=== PATIENT | male | born 2000 | race Caucasian/White ===

== ENCOUNTER 2024-11-18 07:02 | Inpatient (IN) | payer SELFPAY ==
[~2024-11-18] VITALS: Ht 180.3 cm; Wt 81.6 kg
[2024-11-18] MEDS: DEXT 5%/0.9% NACL 1,000 ML IV SCH (01:05)
[2024-11-18 10:36] LABS: CALCIUM 9.8 mg/dL (8.7-10.4); CHLORIDE 101 mEq/L (98-107); POTASSIUM 3.6 mEq/L (3.5-5.1); SODIUM 130 mEq/L (136-145)
[2024-11-18 10:40] LABS: CARBON DIOXIDE < 10 mEq/L (21-32)
[2024-11-18 10:41] LABS: CREATININE 0.9 mg/dL (0.6-1.3); GLUCOSE 366 mg/dL (70-105)
[2024-11-18 10:42] LABS: UREA NITROGEN BLOOD 8 mg/dL (9-23)
[2024-11-18 10:44] LABS: BETA HYDROXYBUTYRATE 8.4 mMol/L (0.0-0.3)
[2024-11-18 10:45] LABS: TROPONIN I HIGH SENSITIVITY < 4 ng/L (3.0-53)
[2024-11-18] MEDS ORDERED: POTASSIUM CHLORIDE 40 MEQ in SODIUM CHLORIDE 0.9% 230 ML IV PRN (11:00)
[2024-11-18] MEDS ORDERED: SODIUM CHLORIDE 0.9% 1,000 ML IV SCH (11:00)
[2024-11-18] MEDS ORDERED: SODIUM PHOSPHATE 15 MMOL in SODIUM CHLORIDE 0.9% 245 ML IV PRN ×2 (11:00→12:00)
[2024-11-18] MEDS ORDERED: DEXTROSE 50% WATER 50ML SYRINGE IV PRN ×2 (11:00→12:00)
[2024-11-18] MEDS ORDERED: DEXT 5%/0.9% NACL 1,000 ML IV SCH (11:00)
[2024-11-18] MEDS ORDERED: BLOOD SUGAR DIAGNOSTIC STRIP TEST PRN ×2 (11:00→12:00)
[2024-11-18] MEDS ORDERED: KCL 20MEQ/100ML PREMIX 100 ML IV PRN (11:00)
[2024-11-18] MEDS ORDERED: MAGNESIUM 2 G PREMIX 50 ML IV PRN (11:00)
[2024-11-18] MEDS ORDERED: INSULIN REGULAR (DRIP) 100 UNITS in SODIUM CHLORIDE 0.9% 99 ML IV SCH (11:00)
[2024-11-18 11:02] LABS: BG BASE EXCESS -20.2 mmol/L (-2.0-3.0); BG CARBOXYHEMOGLOBIN 0.3 % (0.5-1.5); BG DEOXYHEMOGLOBIN 1.7 % (0.0-5.0); BG FRACTION INSPIRED OXYGEN 21; BG HCO3 ACT 4.9 mmol/L (21.0-28.0); BG METHEMOGLOBIN 0.2 % (0.5-1.5); BG OXYGEN SATURATION 98.3 % (94.0-98.0); BG OXYHEMOGLOBIN 97.8 % (94.0-98.0); BG PCO2 13.1 mmHg (35.0-48.0); BG PH 7.193 (7.350-7.450); BG SAMPLE SITE RIGHT RADIAL; BG VENT MODE ROOM AIR
[2024-11-18] MEDS: INSULIN REGULAR 100U/100ML PMX 100 ML IV SCH (11:50)
[2024-11-18] MEDS: SODIUM CHLORIDE 0.9% 1,000 ML IV ONE ×2 (11:50→12:28)
[2024-11-18] MEDS: BLOOD SUGAR DIAGNOSTIC STRIP TEST SCH ×2 (11:50→12:00)
[2024-11-18] MEDS ORDERED: GUAIFENESIN 200MG/10ML SUGAR FREE UDC PO PRN (12:00)
[2024-11-18] MEDS ORDERED: CLONIDINE 0.1MG TABLET PO PRN (12:00)
[2024-11-18] MEDS ORDERED: ACETAMINOPHEN 325MG TABLET PO PRN (12:00)
[2024-11-18] MEDS ORDERED: DOCUSATE SODIUM 100MG CAPSULE PO PRN (12:00)
[2024-11-18] MEDS ORDERED: IPRATROPIUM/ALBUTEROL 0.5-3(2.5)MG/3ML NEB HHN PRN (12:00)
[2024-11-18 12:18] LABS: CLARITY URINE CLEAR (CLEAR); COLOR URINE YELLOW (YELLOW); GLUCOSE URINE 3+ (NEGATIVE); KETONES URINE 4+ (NEGATIVE); LEUKOCYTE ESTERASE URINE NEGATIVE (NEGATIVE); NITRITE URINE NEGATIVE (NEGATIVE); OCCULT BLOOD URINE 1+ (NEGATIVE); PROTEIN URINE 3+ (NEGATIVE); SPECIFIC GRAVITY URINE 1.035 (1.005-1.030); UROBILINOGEN URINE 0.2 E.U./dL (0.2-1.0)
[2024-11-18 13:02] LABS: CHLORIDE 102 mEq/L (98-107); POTASSIUM 4.1 mEq/L (3.5-5.1); SODIUM 132 mEq/L (136-145)
[2024-11-18 13:03] LABS: CALCIUM 9.1 mg/dL (8.7-10.4)
[2024-11-18 13:08] LABS: GLUCOSE 369 mg/dL (70-105); UREA NITROGEN BLOOD 8 mg/dL (9-23)
[2024-11-18 13:11] LABS: BACTERIA URINE FEW; RBC URINE NONE SEEN /hpf (0-2); SQUAMOUS EPITHELIAL CELL URINE NONE SEEN /lpf (RARE/1+); WBC URINE 0-2 /hpf (0-2); YEAST URINE FEW
[2024-11-18 13:11] LABS: PHOSPHORUS 2.6 mg/dL (2.5-4.9)
[2024-11-18] MEDS: SODIUM CHLORIDE 0.9% 1,000 ML IV SCH (13:11)
[2024-11-18 13:14] LABS: HYALINE CASTS URINE 0-5 /lpf
[2024-11-18 13:21] LABS: CARBON DIOXIDE < 10 mEq/L (21-32)
[2024-11-18] MEDS: MAGNESIUM 2 G PREMIX 50 ML IV PRN (13:37)
[2024-11-18 13:46] LABS: INR 0.9; PROTHROMBIN TIME 10.1 sec (9.6-11.0)
[2024-11-18 13:51] LABS: LACTATE DEHYDROGENASE 211 IU/L (120-246)
[2024-11-18 15:04] LABS: CREATINE KINASE 79 IU/L (46-171)
[2024-11-18] MEDS: KETOROLAC 15MG/ML VIAL IV NR (15:09)
[2024-11-18 15:39] LABS: BASOPHILS % 0.3 % (0.0-2.0); EOSINOPHILS % 0.2 % (0.0-5.0); HEMATOCRIT. 51.4 % (42.0-52.0); HEMOGLOBIN. 18.1 g/dL (14.0-18.0); LYMPHOCYTES % 7.8 % (20.0-50.0); MEAN CORPUSCULAR HEMOGLOBIN 28.2 pg (28.0-32.0); MEAN CORPUSCULAR HGB CONC 35.2 g/dL (31.0-37.0); MEAN CORPUSCULAR VOLUME 80.1 fL (80.0-94.0); MEAN PLATELET VOLUME 9.8 fl (7.4-10.4); MONOCYTES % 8.9 % (2.0-8.0); NEUTROPHILS % 82.8 % (40.0-76.0); PLATELET 204 x1000/uL (130-400); RED BLOOD CELL COUNT 6.41 mill/uL (4.7-6.1); RED CELL DISTRIBUTION WIDTH 17.6 % (11.6-14.6); WHITE BLOOD COUNT 20.9 x1000/uL (4.5-11.0)
[2024-11-18 17:15] LABS: CHLORIDE 109 mEq/L (98-107); SODIUM 134 mEq/L (136-145)
[2024-11-18 17:16] LABS: CALCIUM 8.2 mg/dL (8.7-10.4)
[2024-11-18 17:21] LABS: CREATININE 0.8 mg/dL (0.6-1.3); GLUCOSE 260 mg/dL (70-105); UREA NITROGEN BLOOD 7 mg/dL (9-23)
[2024-11-18 17:23] LABS: PHOSPHORUS 1.2 mg/dL (2.5-4.9)
[2024-11-18 17:27] LABS: CARBON DIOXIDE < 10 mEq/L (21-32)
[2024-11-18] MEDS: ACETAMINOPHEN 325MG TABLET PO PRN (20:17)
[2024-11-18 20:44] LABS: CHLORIDE 109 mEq/L (98-107); POTASSIUM 3.8 mEq/L (3.5-5.1); SODIUM 136 mEq/L (136-145)
[2024-11-18 20:45] LABS: CALCIUM 8.4 mg/dL (8.7-10.4); CARBON DIOXIDE 11 mEq/L (21-32)
[2024-11-18] MEDS: ONDANSETRON HCL 4MG/2ML INJ IV PRN (20:49)
[2024-11-18 20:50] LABS: GLUCOSE 275 mg/dL (70-105); UREA NITROGEN BLOOD 9 mg/dL (9-23)
[2024-11-18 21:02] LABS: CHLORIDE 109 mEq/L (98-107); POTASSIUM 4.1 mEq/L (3.5-5.1); SODIUM 133 mEq/L (136-145)
[2024-11-18] MEDS: POTASSIUM PHOSPHATE 30 MMOL in DEXT 5% WATER 490 ML IV NR (21:07)
[2024-11-18 21:10] LABS: PHOSPHORUS 1.4 mg/dL (2.5-4.9)
[2024-11-18 21:17] LABS: CARBON DIOXIDE < 10 mEq/L (21-32)
[2024-11-18 22:44] LABS: CHLORIDE 108 mEq/L (98-107); POTASSIUM 4.8 mEq/L (3.5-5.1); SODIUM 134 mEq/L (136-145)
[2024-11-18 22:45] LABS: CARBON DIOXIDE 11 mEq/L (21-32)
[2024-11-18 22:46] LABS: CALCIUM 8.4 mg/dL (8.7-10.4)
[2024-11-18 22:50] LABS: GLUCOSE 297 mg/dL (70-105); UREA NITROGEN BLOOD 9 mg/dL (9-23)
[2024-11-18 23:54] VITALS: BP 110/85; PULSE 137; RESP 26; TEMP 36.9
[2024-11-18 23:55] VITALS: PULSE 134; RESP 21; O2SAT 97
[2024-11-19] VITALS (95 sets, daily range): BP systolic 98–154; BP diastolic 62–127; PULSE 104–150; RESP 16–34; TEMP 36.6–37.1; O2SAT 97–100
[2024-11-19] MEDS: INSULIN REGULAR 100U/100ML PMX 100 ML IV PRN (00:18)
[2024-11-19] MEDS: METOCLOPRAMIDE HCL 10MG/2ML VIAL IV NR (01:15)
[2024-11-19 05:50] LABS: BASOPHILS % 0.2 % (0.0-2.0); DIFFERENTIAL COMMENT 0; EOSINOPHILS % 0.1 % (0.0-5.0); HEMATOCRIT. 47.7 % (42.0-52.0); HEMOGLOBIN. 15.8 g/dL (14.0-18.0); LYMPHOCYTES % 7.9 % (20.0-50.0); MEAN CORPUSCULAR HEMOGLOBIN 25.9 pg (28.0-32.0); MEAN CORPUSCULAR HGB CONC 33.2 g/dL (31.0-37.0); MEAN PLATELET VOLUME 9.5 fl (7.4-10.4); MONOCYTES % 3.6 % (2.0-8.0); NEUTROPHILS % 88.2 % (40.0-76.0); PLATELET 171 x1000/uL (130-400); RED BLOOD CELL COUNT 6.12 mill/uL (4.7-6.1); RED CELL DISTRIBUTION WIDTH 16.4 % (11.6-14.6)
[2024-11-19 06:31] LABS: CALCIUM 8.2 mg/dL (8.7-10.4); CARBON DIOXIDE 13 mEq/L (21-32); CHLORIDE 113 mEq/L (98-107); POTASSIUM 3.1 mEq/L (3.5-5.1); SODIUM 137 mEq/L (136-145)
[2024-11-19 06:35] LABS: CREATININE 0.8 mg/dL (0.6-1.3); GLUCOSE 196 mg/dL (70-105); TRIGLYCERIDE 914 mg/dL (0-150); UREA NITROGEN BLOOD 11 mg/dL (9-23)
[2024-11-19 06:36] LABS: LDL CHOLESTEROL 64 mg/dL (5-100)
[2024-11-19 06:37] LABS: ALBUMIN 3.3 g/dL (3.2-4.8); CHOLESTEROL 356 mg/dL (<200); HDL CHOLESTEROL < 20 mg/dL (>55)
[2024-11-19 06:39] LABS: T4 FREE 0.95 ng/dL (0.89-1.76)
[2024-11-19 06:40] LABS: THYROID STIMULATING HORMONE 1.76 uIU/mL (0.55-4.78)
[2024-11-19] MEDS: KCL 20MEQ/100ML PREMIX 100 ML IV PRN (07:50)
[2024-11-19 08:31] LABS: PHOSPHORUS 1.1 mg/dL (2.5-4.9)
[2024-11-19] MEDS: ERYTHROMYCIN EC 250MG TABLET PO SCH (08:41)
[2024-11-19] MEDS: POTASSIUM CHLORIDE 40 MEQ in SODIUM CHLORIDE 0.9% 230 ML IV PRN (10:06)
[2024-11-19] MEDS ORDERED: POTASSIUM PHOSPHATE 30 MMOL in SODIUM CHLORIDE 0.9% 490 ML IV ONE (10:30)
[2024-11-19] MEDS: DEXT 5% IV SCH (13:38)
[2024-11-19] MEDS: POTASSIUM PHOSPHATE IV SCH (13:38)
[2024-11-19] MEDS: WATER IV SCH (13:38)
[2024-11-19] MEDS: INSULIN REGULAR (HUMULIN R) 1000UNITS/10ML VIAL SUBCUT NR (15:28)
[2024-11-19] MEDS ORDERED: DEXTROSE 50% WATER 50ML SYRINGE IV PRN (15:45)
[2024-11-19] MEDS: BLOOD SUGAR DIAGNOSTIC STRIP TEST SCH (16:30)
[2024-11-19] MEDS ORDERED: INSU100I28 SQ (16:55)
[2024-11-19] MEDS ORDERED: METF500T60 MT (16:56)
[2024-11-19] MEDS ORDERED: KETOROLAC 30MG/ML VIAL IV PRN (17:00)
[2024-11-19 18:32] LABS: CHLORIDE 116 mEq/L (98-107); SODIUM 143 mEq/L (136-145)
[2024-11-19 18:33] LABS: CALCIUM 8.2 mg/dL (8.7-10.4); CARBON DIOXIDE 16 mEq/L (21-32)
[2024-11-19 18:38] LABS: CREATININE 0.6 mg/dL (0.6-1.3); GLUCOSE 142 mg/dL (70-105); UREA NITROGEN BLOOD 7 mg/dL (9-23)
[2024-11-19 18:39] LABS: AMYLASE 440 IU/L (30-118); BILIRUBIN TOTAL 0.6 mg/dL (0.1-1.0)
[2024-11-19 18:40] LABS: ALANINE AMINOTRANSFERASE < 7 IU/L (10-49); ASPARTATE AMINOTRANSFERASE 15 IU/L (<34); PROTEIN TOTAL 5.4 g/dL (6.0-8.3)
[2024-11-19 18:51] LABS: BILIRUBIN DIRECT < 0.1 mg/dL (<=3.0); PHOSPHORUS 0.9 mg/dL (2.5-4.9)
[2024-11-19] MEDS: KCL 20MEQ/100ML PREMIX 100 ML IV SCH (19:26)
[2024-11-19] MEDS: SODIUM CHLORIDE 0.45% 1,000 ML IV SCH (19:27)
[2024-11-19] MEDS: INSULIN LISPRO 100 UNITS/ML SUBCUT SCH (19:28)
[2024-11-19] MEDS: POTASSIUM PHOSPHATE 30 MMOL in SODIUM CHLORIDE 0.9% 490 ML IV NR (21:50)
[2024-11-20] VITALS (84 sets, daily range): BP systolic 103–156; BP diastolic 56–96; PULSE 99–134; RESP 15–31; TEMP 36.8–37.2; O2SAT 95–100
[2024-11-20 03:27] LABS: CHLORIDE 112 mEq/L (98-107); POTASSIUM 3.7 mEq/L (3.5-5.1); SODIUM 140 mEq/L (136-145)
[2024-11-20 03:28] LABS: CARBON DIOXIDE 18 mEq/L (21-32)
[2024-11-20 03:32] LABS: HEMATOCRIT 37.4 % (42.0-52.0); HEMOGLOBIN 12.4 g/dL (14.0-18.0); MEAN CORPUSCULAR HEMOGLOBIN 25.7 pg (28.0-32.0); MEAN CORPUSCULAR HGB CONC 33.1 g/dL (31.0-37.0); MEAN CORPUSCULAR VOLUME 77.8 fL (80.0-94.0); PLATELET 118 x1000/uL (130-400); RED BLOOD CELL COUNT 4.81 mill/uL (4.7-6.1); RED CELL DISTRIBUTION WIDTH 16.9 % (11.6-14.6); WHITE BLOOD COUNT 8.4 x1000/uL (4.5-11.0)
[2024-11-20 03:33] LABS: CREATININE 0.5 mg/dL (0.6-1.3); GLUCOSE 174 mg/dL (70-105); UREA NITROGEN BLOOD 7 mg/dL (9-23)
[2024-11-20 05:57] LABS: CHLORIDE 110 mEq/L (98-107); POTASSIUM 3.6 mEq/L (3.5-5.1); SODIUM 140 mEq/L (136-145)
[2024-11-20 05:59] LABS: CARBON DIOXIDE 19 mEq/L (21-32)
[2024-11-20 06:00] LABS: CALCIUM 8.5 mg/dL (8.7-10.4)
[2024-11-20 06:05] LABS: CREATININE 0.5 mg/dL (0.6-1.3); GLUCOSE 156 mg/dL (70-105); UREA NITROGEN BLOOD 7 mg/dL (9-23)
[2024-11-20 06:06] LABS: ALANINE AMINOTRANSFERASE 9 IU/L (10-49)
[2024-11-20 06:07] LABS: ASPARTATE AMINOTRANSFERASE 14 IU/L (<34); BILIRUBIN TOTAL 0.8 mg/dL (0.1-1.0); PHOSPHORUS 1.7 mg/dL (2.5-4.9); PROTEIN TOTAL 5.1 g/dL (6.0-8.3)
[2024-11-20] MEDS: EZETIMIBE 10MG TABLET PO SCH (09:06)
[2024-11-20] MEDS: MAGNESIUM 2 G PREMIX 50 ML IV NR (09:07)
[2024-11-20] MEDS: SODIUM PHOSPHATE 30 MMOL in DEXT 5% WATER 490 ML IV NR (10:56)
[2024-11-20] MEDS: GEMFIBROZIL 600MG TABLET PO SCH (18:36)
[2024-11-20] MEDS: INSULIN GLARGINE 100 UNITS/ML SUBCUT SCH (22:02)
[2024-11-21] VITALS: BP 136/84; PULSE 104; RESP 19; TEMP 36.7; O2SAT 98
[2024-11-21 04:00] VITALS: BP 128/80; PULSE 107; RESP 18; TEMP 36.4; O2SAT 100
[2024-11-21 08:00] VITALS: BP 118/65; PULSE 111; RESP 18; TEMP 36.3; O2SAT 98
[2024-11-21 08:11] LABS: CARBON DIOXIDE 12 mEq/L (21-32); CHLORIDE 105 mEq/L (98-107); POTASSIUM 3.1 mEq/L (3.5-5.1); SODIUM 139 mEq/L (136-145)
[2024-11-21 08:16] LABS: CREATININE 0.6 mg/dL (0.6-1.3)
[2024-11-21 08:17] LABS: GLUCOSE 124 mg/dL (70-105); UREA NITROGEN BLOOD 7 mg/dL (9-23)
[2024-11-21 08:19] LABS: PHOSPHORUS 2.9 mg/dL (2.5-4.9)
[2024-11-21 08:45] LABS: HEMATOCRIT 36.6 % (42.0-52.0); MEAN CORPUSCULAR HEMOGLOBIN 25.4 pg (28.0-32.0); MEAN CORPUSCULAR HGB CONC 32.6 g/dL (31.0-37.0); MEAN CORPUSCULAR VOLUME 77.8 fL (80.0-94.0); PLATELET 144 x1000/uL (130-400); RED BLOOD CELL COUNT 4.71 mill/uL (4.7-6.1); WHITE BLOOD COUNT 10.3 x1000/uL (4.5-11.0)
[2024-11-21] MEDS: POTASSIUM CHLORIDE 20MEQ TABLET SR PO NR (11:01)
[2024-11-21 12:00] VITALS: BP 121/80; PULSE 65; RESP 18; TEMP 36.4; O2SAT 98
[2024-11-21 16:00] VITALS: BP 114/76; PULSE 70; RESP 18; TEMP 36.7; O2SAT 98
[2024-11-21] MEDS ORDERED: GEMF600T PO (17:50)
[2024-11-21 18:15] VITALS: BP 124/80; PULSE 101; TEMP 97.4; O2SAT 100
[2024-11-21 19:19] LABS: POTASSIUM 3.7 mEq/L (3.5-5.1)
== END 2024-11-21 19:15 | disposition home or self-care (01) | DRG 420 ==
LOC: EDBD 07:02 → ER 07:02 → MICUNO 11:04 → EDBEDREQTM 11:08 → EDBEDREQSVC 11:08 → EDBEDREQ 11:08 → 6WST 11-20 23:58
PROVIDERS: ADMIT Hospitalist; ATTEND Hospitalist
DX: E11.10 Type 2 diabetes mellitus with ketoacidosis without coma (principal); K85.90 Acute pancreatitis without necrosis or infection, unspecified; E87.4 Mixed disorder of acid-base balance; E83.39 Other disorders of phosphorus metabolism; D72.821 Monocytosis (symptomatic); E87.1 Hypo-osmolality and hyponatremia; E78.1 Pure hyperglyceridemia; E83.42 Hypomagnesemia; E87.6 Hypokalemia; K86.1 Other chronic pancreatitis; Z79.4 Long term (current) use of insulin; Z79.84 Long term (current) use of oral hypoglycemic drugs
CPT/HCPCS: 36415; 36600; 71045; 74176; 80048; 80051; 80053; 80061; 80076; 81003; 82010; 82040; 82150; 82375; 82550; 82805; 82962; 83036; 83605; 83615; 83735; 83930; 84100; 84132; 84145; 84439; 84443; 84484; 85025; 85027; 85651; 93005; 99291; A4606; A4663; J1815; J1885; J2405; J2765; J3475; J3480; J3490; J7030; J7040; J7042; J7050; J7060

== ENCOUNTER 2024-11-24 06:19 | Inpatient (IN) | payer SELFPAY ==
[~2024-11-24] VITALS: Ht 180.3 cm; Wt 79.8 kg
[~2024-11-24 06:19] MED LIST: GEMF600T PO; INSU100I28 SQ; METF500T60 MT
[2024-11-24] MEDS: SODIUM CHLORIDE 0.9% 1,000 ML IV ONE (06:32)
[2024-11-24] MEDS: VANCOMYCIN 1G PREMIX 200 ML IV ONE (07:09)
[2024-11-24] MEDS: PIPERACILLIN/TAZO 3.375G/50ML 50 ML IV ONE (07:12)
[2024-11-24 07:27] LABS: CHLORIDE 108 mEq/L (98-107); SODIUM 137 mEq/L (136-145)
[2024-11-24 07:28] LABS: CALCIUM 10.5 mg/dL (8.7-10.4)
[2024-11-24 07:33] LABS: CREATININE 1.3 mg/dL (0.6-1.3); UREA NITROGEN BLOOD 26 mg/dL (9-23)
[2024-11-24 07:34] LABS: LACTIC ACID 2.6 mmol/L (0.4-2.0); TROPONIN I HIGH SENSITIVITY 4 ng/L (3.0-53)
[2024-11-24 07:35] LABS: ALANINE AMINOTRANSFERASE < 7 IU/L (10-49); ALBUMIN 4.3 g/dL (3.2-4.8); BILIRUBIN TOTAL 0.3 mg/dL (0.1-1.0); CLARITY URINE CLEAR (CLEAR); COLOR URINE YELLOW (YELLOW); GLUCOSE URINE 3+ (NEGATIVE); KETONES URINE 4+ (NEGATIVE); LEUKOCYTE ESTERASE URINE NEGATIVE (NEGATIVE); NITRITE URINE NEGATIVE (NEGATIVE); OCCULT BLOOD URINE 2+ (NEGATIVE); PROTEIN URINE 2+ (NEGATIVE); SPECIFIC GRAVITY URINE 1.022 (1.005-1.030); UROBILINOGEN URINE 0.2 E.U./dL (0.2-1.0)
[2024-11-24 07:36] LABS: PROTEIN TOTAL 8.2 g/dL (6.0-8.3)
[2024-11-24 07:37] LABS: ASPARTATE AMINOTRANSFERASE < 8 IU/L (<34); BILIRUBIN DIRECT < 0.1 mg/dL (<=3.0)
[2024-11-24 07:39] LABS: CARBON DIOXIDE < 10 mEq/L (21-32); GLUCOSE 475 mg/dL (70-105); POTASSIUM 1.6 mEq/L (3.5-5.1)
[2024-11-24 07:46] LABS: PROTHROMBIN TIME 11.1 sec (9.6-11.0)
[2024-11-24 07:54] LABS: BETA HYDROXYBUTYRATE 6.3 mMol/L (0.0-0.3)
[2024-11-24] MEDS ORDERED: SODIUM PHOSPHATE 15 MMOL in SODIUM CHLORIDE 0.9% 245 ML IV PRN ×2 (08:00→11:30)
[2024-11-24] MEDS ORDERED: MAGNESIUM 2 G PREMIX 50 ML IV PRN ×2 (08:00→11:30)
[2024-11-24] MEDS ORDERED: DEXTROSE 50% WATER 50ML SYRINGE IV PRN ×2 (08:00→09:15)
[2024-11-24] MEDS ORDERED: KCL 20MEQ/100ML PREMIX 100 ML IV PRN ×2 (08:00→11:30)
[2024-11-24] MEDS ORDERED: BLOOD SUGAR DIAGNOSTIC STRIP TEST PRN ×2 (08:00→09:15)
[2024-11-24] MEDS ORDERED: DEXT 5%/0.9% NACL 1,000 ML IV SCH ×2 (08:00→11:30)
[2024-11-24 08:22] LABS: HEMATOCRIT. 43.6 % (42.0-52.0); HEMOGLOBIN. 13.6 g/dL (14.0-18.0); MEAN CORPUSCULAR HEMOGLOBIN 25.6 pg (28.0-32.0); MEAN CORPUSCULAR HGB CONC 31.2 g/dL (31.0-37.0); MEAN CORPUSCULAR VOLUME 82.2 fL (80.0-94.0); MEAN PLATELET VOLUME 8.7 fl (7.4-10.4); PLATELET 352 x1000/uL (130-400); RED CELL DISTRIBUTION WIDTH 18.6 % (11.6-14.6); WHITE BLOOD COUNT 16.9 x1000/uL (4.5-11.0)
[2024-11-24 08:26] LABS: DIFFERENTIAL COMMENT 1
[2024-11-24] MEDS: SODIUM CHLORIDE 0.9% (SEPSIS BOLUS) IV ONE (08:42)
[2024-11-24] MEDS: BLOOD SUGAR DIAGNOSTIC STRIP TEST SCH ×2 (08:43→09:30)
[2024-11-24] MEDS: POTASSIUM CHLORIDE 40 MEQ in SODIUM CHLORIDE 0.9% 230 ML IV PRN (08:55)
[2024-11-24 08:59] LABS: BG BASE EXCESS -26.7 mmol/L (-2.0-3.0); BG CARBOXYHEMOGLOBIN 0.5 % (0.5-1.5); BG DEOXYHEMOGLOBIN 3.5 % (0.0-5.0); BG FRACTION INSPIRED OXYGEN 28; BG HCO3 ACT 5.3 mmol/L (21.0-28.0); BG METHEMOGLOBIN 0.1 % (0.5-1.5); BG OXYGEN SATURATION 96.5 % (94.0-98.0); BG OXYHEMOGLOBIN 95.9 % (94.0-98.0); BG PCO2 28.2 mmHg (35.0-48.0); BG PH 6.894 (7.350-7.450); BG PO2 105.6 mmHg (83.0-108.0); BG SAMPLE SITE RIGHT BRACHIAL; BG TOTAL HEMOGLOBIN 12.5 g/dL (13.5-17.5); BG VENT MODE NASAL CANNULA
[2024-11-24] MEDS ORDERED: ACETAMINOPHEN 325MG TABLET PO PRN ×2 (09:00)
[2024-11-24] MEDS ORDERED: GUAIFENESIN 200MG/10ML SUGAR FREE UDC PO PRN (09:00)
[2024-11-24] MEDS ORDERED: DOCUSATE SODIUM 100MG CAPSULE PO PRN (09:00)
[2024-11-24] MEDS ORDERED: CLONIDINE 0.1MG TABLET PO PRN (09:00)
[2024-11-24] MEDS ORDERED: IPRATROPIUM/ALBUTEROL 0.5-3(2.5)MG/3ML NEB HHN PRN (09:00)
[2024-11-24] MEDS ORDERED: PIPERACILLIN/TAZOBACTAM 3.375 G in DEXTROSE 5% WATER 50 ML IV SCH (09:00)
[2024-11-24 09:14] LABS: BACTERIA URINE TRACE; SQUAMOUS EPITHELIAL CELL URINE NONE SEEN /lpf (RARE/1+)
[2024-11-24 09:15] LABS: RBC URINE 0-2 /hpf (0-2); WBC URINE 0-2 /hpf (0-2); YEAST URINE FEW
[2024-11-24] MEDS: INSULIN REGULAR (HUMULIN R) 1000UNITS/10ML VIAL IV SCH (09:15)
[2024-11-24 09:39] LABS: CHLORIDE 113 mEq/L (98-107); SODIUM 141 mEq/L (136-145)
[2024-11-24 09:40] LABS: CALCIUM 8.6 mg/dL (8.7-10.4)
[2024-11-24 09:45] LABS: CREATININE 1.3 mg/dL (0.6-1.3); UREA NITROGEN BLOOD 29 mg/dL (9-23)
[2024-11-24 09:46] LABS: LDL CHOLESTEROL 200 mg/dL (5-100); TRIGLYCERIDE 309 mg/dL (0-150)
[2024-11-24 09:47] LABS: AMYLASE 53 IU/L (30-118); HDL CHOLESTEROL < 20 mg/dL (>55); PHOSPHORUS 2.9 mg/dL (2.5-4.9)
[2024-11-24 09:48] LABS: CHOLESTEROL 276 mg/dL (<200)
[2024-11-24] MEDS: AMIODARONE 150MG/100ML D5W 100 ML IV NR (10:09)
[2024-11-24] MEDS: SODIUM CHLORIDE 0.9% 1,000 ML IV SCH ×2 (10:10→11:30)
[2024-11-24 10:12] LABS: CARBON DIOXIDE < 10 mEq/L (21-32); GLUCOSE 531 mg/dL (70-105); POTASSIUM 2.1 mEq/L (3.5-5.1)
[2024-11-24 10:15] LABS: ANISOCYTOSIS 1+; MICROCYTOSIS 1+; PLATELET ESTIMATE NORMAL
[2024-11-24] MEDS: METOPROLOL TARTRATE 25MG TABLET PO SCH (11:27)
[2024-11-24] MEDS: DILTIAZEM HCL 5MG/ML 5ML VIAL IV NR (11:27)
[2024-11-24] MEDS: VANCOMYCIN 1.5GM/250ML IV NR (11:30)
[2024-11-24] MEDS ORDERED: POTASSIUM CHLORIDE 40 MEQ in SODIUM CHLORIDE 0.9% 230 ML IV PRN (11:30)
[2024-11-24 12:37] LABS: CHLORIDE 116 mEq/L (98-107); POTASSIUM 3.3 mEq/L (3.5-5.1); SODIUM 144 mEq/L (136-145)
[2024-11-24 12:46] LABS: PHOSPHORUS 2.1 mg/dL (2.5-4.9)
[2024-11-24 13:13] LABS: CARBON DIOXIDE < 10 mEq/L (21-32)
[2024-11-24 14:08] LABS: *AMPHETAMINES SCREEN URINE NEGATIVE (NEGATIVE); *BARBITURATES SCREEN URINE NEGATIVE (NEGATIVE); *BENZODIAZEPINES SCREEN URINE NEGATIVE (NEGATIVE); *COCAINE SCREEN URINE NEGATIVE (NEGATIVE); CANNABINOID URINE SCREEN NEGATIVE (NEGATIVE); ECSTASY MDMA SCREEN URINE NEGATIVE (NEGATIVE); METHADONE URINE SCREEN NEGATIVE (NEGATIVE); OPIATES URINE SCREEN NEGATIVE (NEGATIVE); PHENCYCLIDINE URINE SCREEN NEGATIVE (NEGATIVE)
[2024-11-24] MEDS ORDERED: POTASSIUM PHOSPHATE 20 MMOL in DEXT 5% WATER 243.3333 ML IV NR (14:30)
[2024-11-24] MEDS: PIPERACILLIN/TAZO 3.375G/50ML IV SCH (14:31)
[2024-11-24] MEDS: ENOXAPARIN 40MG/0.4ML SYR SUBCUT SCH (14:31)
[2024-11-24] MEDS: SODIUM BICARBONATE 8.4% 50MEQ/50ML SYR IV NR ×2 (14:32→21:30)
[2024-11-24] MEDS: PANTOPRAZOLE SODIUM 40 MG/VIAL IV SCH (14:32)
[2024-11-24] MEDS: INSULIN REGULAR 100U/100ML PMX 100 ML IV SCH (15:12)
[2024-11-24 15:20] LABS: CREATINE KINASE 96 IU/L (46-171); TROPONIN I HIGH SENSITIVITY 8 ng/L (3.0-53)
[2024-11-24] MEDS: INSULIN REGULAR (HUMULIN R) 1000UNITS/10ML VIAL IV NR (15:30)
[2024-11-24 16:58] LABS: CHLORIDE 121 mEq/L (98-107)
[2024-11-24 16:59] LABS: CARBON DIOXIDE 12 mEq/L (21-32)
[2024-11-24] MEDS ORDERED: NOREPINEPHRINE 32 MG in DEXT 5% WATER 218 ML IV PRN (17:00)
[2024-11-24 17:07] LABS: PHOSPHORUS 1.3 mg/dL (2.5-4.9)
[2024-11-24 17:09] LABS: SODIUM 152 mEq/L (136-145)
[2024-11-24 17:10] LABS: POTASSIUM 1.4 mEq/L (3.5-5.1)
[2024-11-24] MEDS ORDERED: DEXMEDETOMIDINE 400 MCG/100 ML 100 ML IV PRN ×2 (17:15→18:00)
[2024-11-24 17:38] VITALS: PULSE 113; RESP 17; O2SAT 99
[2024-11-24] MEDS ORDERED: LACTATED RINGERS 1,000 ML IV SCH (17:45)
[2024-11-24] MEDS: SODIUM CHLORIDE 0.45% IV SCH (18:15)
[2024-11-24] MEDS: POTASSIUM CHLORIDE IV SCH ×2 (18:15→20:19)
[2024-11-24] MEDS: DEXMEDETOMIDINE 400 MCG/100 ML 100 ML IV PRN (18:16)
[2024-11-24] MEDS: POTASSIUM CHLORIDE 40 MEQ in DEXT 5% WATER 230 ML IV ONE (18:16)
[2024-11-24 18:22] LABS: BG BASE EXCESS -18.5 mmol/L (-2.0-3.0); BG CARBOXYHEMOGLOBIN 0.3 % (0.5-1.5); BG DEOXYHEMOGLOBIN 0.3 % (0.0-5.0); BG FRACTION INSPIRED OXYGEN 100; BG HCO3 ACT 11.2 mmol/L (21.0-28.0); BG METHEMOGLOBIN 0.1 % (0.5-1.5); BG OXYGEN SATURATION 99.7 % (94.0-98.0); BG OXYHEMOGLOBIN 99.3 % (94.0-98.0); BG PCO2 40.9 mmHg (35.0-48.0); BG PH 7.057 (7.350-7.450); BG PO2 513.6 mmHg (83.0-108.0); BG SAMPLE SITE RIGHT BRACHIAL; BG TOTAL HEMOGLOBIN 13.5 g/dL (13.5-17.5); BG VENT MODE VENT - AC
[2024-11-24] MEDS: NOREPINEPHRINE 32 MG in DEXT 5% WATER 218 ML IV PRN (18:31)
[2024-11-24] MEDS: LACTATED RINGERS IV SCH (20:19)
[2024-11-24] MEDS: MAGNESIUM 4 G PREMIX 100 ML IV NR (20:20)
[2024-11-24 20:55] LABS: CHLORIDE 122 mEq/L (98-107); SODIUM 152 mEq/L (136-145)
[2024-11-24 20:56] LABS: CARBON DIOXIDE 11 mEq/L (21-32)
[2024-11-24 21:04] LABS: PHOSPHORUS 1.2 mg/dL (2.5-4.9)
[2024-11-24 21:11] VITALS: PULSE 104; RESP 15; O2SAT 98
[2024-11-24 21:21] LABS: POTASSIUM 1.6 mEq/L (3.5-5.1)
[2024-11-24] MEDS: POTASSIUM CHLORIDE 40 MEQ in DEXT 5% WATER 230 ML IV NR (22:29)
[2024-11-24] MEDS: POTASSIUM PHOSPHATE 30 MMOL in SODIUM CHLORIDE 0.9% 490 ML IV NR (22:30)
[2024-11-24] MEDS: PIPERACILLIN/TAZO 3.375G/50ML 50 ML IV SCH (22:37)
[2024-11-24 23:10] VITALS: PULSE 101; RESP 16; O2SAT 97
[2024-11-24 23:58] LABS: CHLORIDE 119 mEq/L (98-107)
[2024-11-25] VITALS (103 sets, daily range): BP systolic 84–165; BP diastolic 53–107; PULSE 60–105; RESP 16–28; TEMP 36.7–37.1; O2SAT 96–100
[2024-11-25 00:05] LABS: TROPONIN I HIGH SENSITIVITY 12 ng/L (3.0-53)
[2024-11-25 00:06] LABS: CREATINE KINASE 82 IU/L (46-171); PHOSPHORUS 1.7 mg/dL (2.5-4.9)
[2024-11-25 00:15] LABS: BG BASE EXCESS -15.8 mmol/L (-2.0-3.0); BG CARBOXYHEMOGLOBIN 0.5 % (0.5-1.5); BG DEOXYHEMOGLOBIN 0.5 % (0.0-5.0); BG FRACTION INSPIRED OXYGEN 40; BG HCO3 ACT 10.8 mmol/L (21.0-28.0); BG METHEMOGLOBIN 0.2 % (0.5-1.5); BG OXYGEN SATURATION 99.5 % (94.0-98.0); BG OXYHEMOGLOBIN 98.8 % (94.0-98.0); BG PCO2 28.7 mmHg (35.0-48.0); BG PH 7.192 (7.350-7.450); BG PO2 181.9 mmHg (83.0-108.0); BG SAMPLE SITE LEFT RADIAL; BG TOTAL HEMOGLOBIN 15.9 g/dL (13.5-17.5); BG VENT MODE VENT - AC
[2024-11-25 01:14] LABS: CARBON DIOXIDE 14 mEq/L (21-32); SODIUM 153 mEq/L (136-145)
[2024-11-25 01:23] LABS: POTASSIUM 2.1 mEq/L (3.5-5.1)
[2024-11-25] MEDS: BLOOD SUGAR DIAGNOSTIC STRIP TEST SCH (02:10)
[2024-11-25] MEDS: DEXT 5%/0.9% NACL 1,000 ML IV SCH (02:15)
[2024-11-25] MEDS ORDERED: BLOOD SUGAR DIAGNOSTIC STRIP TEST PRN (02:15)
[2024-11-25] MEDS ORDERED: SODIUM PHOSPHATE 15 MMOL in SODIUM CHLORIDE 0.9% 245 ML IV PRN (02:15)
[2024-11-25] MEDS ORDERED: POTASSIUM CHLORIDE 40 MEQ in SODIUM CHLORIDE 0.9% 230 ML IV PRN (02:15)
[2024-11-25] MEDS ORDERED: MAGNESIUM 2 G PREMIX 50 ML IV PRN (02:15)
[2024-11-25] MEDS ORDERED: DEXTROSE 50% WATER 50ML SYRINGE IV PRN (02:15)
[2024-11-25] MEDS ORDERED: POTASSIUM CHLORIDE 40 MEQ in DEXT 5% WATER 230 ML IV NR (02:30)
[2024-11-25] MEDS: SODIUM CHLORIDE 0.9% 1,000 ML IV SCH (02:46)
[2024-11-25 03:51] LABS: HEMATOCRIT. 35.1 % (42.0-52.0); HEMOGLOBIN. 11.3 g/dL (14.0-18.0); MEAN CORPUSCULAR HEMOGLOBIN 25.5 pg (28.0-32.0); MEAN CORPUSCULAR HGB CONC 32.2 g/dL (31.0-37.0); MEAN CORPUSCULAR VOLUME 79.3 fL (80.0-94.0); MEAN PLATELET VOLUME 8.2 fl (7.4-10.4); PLATELET 255 x1000/uL (130-400); RED BLOOD CELL COUNT 4.43 mill/uL (4.7-6.1); RED CELL DISTRIBUTION WIDTH 18.1 % (11.6-14.6); WHITE BLOOD COUNT 13.3 x1000/uL (4.5-11.0)
[2024-11-25 03:56] LABS: DIFFERENTIAL COMMENT 1
[2024-11-25 04:01] LABS: CHLORIDE 120 mEq/L (98-107)
[2024-11-25 04:07] LABS: UREA NITROGEN BLOOD 31 mg/dL (9-23)
[2024-11-25 04:09] LABS: ALBUMIN 3.3 g/dL (3.2-4.8); AMYLASE 64 IU/L (30-118); ASPARTATE AMINOTRANSFERASE 10 IU/L (<34); PHOSPHORUS 1.2 mg/dL (2.5-4.9)
[2024-11-25 04:10] LABS: BILIRUBIN TOTAL 0.3 mg/dL (0.1-1.0); PROTEIN TOTAL 6.2 g/dL (6.0-8.3)
[2024-11-25 04:40] LABS: ALANINE AMINOTRANSFERASE < 7 IU/L (10-49); BILIRUBIN DIRECT < 0.1 mg/dL (<=3.0); CALCIUM 8.4 mg/dL (8.7-10.4); CARBON DIOXIDE 12 mEq/L (21-32); CREATININE 2.1 mg/dL (0.6-1.3); SODIUM 152 mEq/L (136-145)
[2024-11-25 04:43] LABS: GLUCOSE 561 mg/dL (70-105); POTASSIUM 2.1 mEq/L (3.5-5.1)
[2024-11-25 05:39] LABS: ANISOCYTOSIS 2+; MICROCYTOSIS 1+; PLATELET ESTIMATE NORMAL
[2024-11-25] MEDS: POTASSIUM PHOSPHATE 20 MMOL in DEXT 5% WATER 243.3333 ML IV NR ×2 (06:18→12:35)
[2024-11-25] MEDS ORDERED: INSULIN REGULAR (HUMULIN R) 1000UNITS/10ML VIAL SUBCUT ONE (08:15)
[2024-11-25] MEDS: INSULIN REGULAR (HUMULIN R) 1000UNITS/10ML VIAL SUBCUT NR (08:37)
[2024-11-25] MEDS: POTASSIUM CHLORIDE 20MEQ/PACKET PO SCH (08:42)
[2024-11-25] MEDS: POTASSIUM CHLORIDE 40 MEQ in DEXT 5% WATER 230 ML IV NR (08:48)
[2024-11-25 09:11] LABS: BG CARBOXYHEMOGLOBIN 0.3 % (0.5-1.5); BG DEOXYHEMOGLOBIN 0.7 % (0.0-5.0); BG FRACTION INSPIRED OXYGEN 40; BG HCO3 ACT 10.5 mmol/L (21.0-28.0); BG METHEMOGLOBIN 0.3 % (0.5-1.5); BG OXYGEN SATURATION 99.3 % (94.0-98.0); BG OXYHEMOGLOBIN 98.7 % (94.0-98.0); BG PCO2 24.2 mmHg (35.0-48.0); BG PH 7.255 (7.350-7.450); BG PO2 199.5 mmHg (83.0-108.0); BG SAMPLE SITE RIGHT RADIAL; BG TOTAL HEMOGLOBIN 11.2 g/dL (13.5-17.5); BG VENT MODE VENT - AC
[2024-11-25 09:59] LABS: CHLORIDE 121 mEq/L (98-107); SODIUM 150 mEq/L (136-145)
[2024-11-25 10:00] LABS: CARBON DIOXIDE 12 mEq/L (21-32)
[2024-11-25 10:01] LABS: CHLORIDE 123 mEq/L (98-107); POTASSIUM 2.4 mEq/L (3.5-5.1); SODIUM 152 mEq/L (136-145)
[2024-11-25 10:02] LABS: CARBON DIOXIDE 12 mEq/L (21-32); POTASSIUM 2.4 mEq/L (3.5-5.1)
[2024-11-25 10:03] LABS: CALCIUM 8.1 mg/dL (8.7-10.4)
[2024-11-25 10:07] LABS: CREATININE 2.2 mg/dL (0.6-1.3)
[2024-11-25 10:08] LABS: UREA NITROGEN BLOOD 41 mg/dL (9-23)
[2024-11-25 10:10] LABS: PHOSPHORUS 1.4 mg/dL (2.5-4.9); POTASSIUM 2.5 mEq/L (3.5-5.1); T4 FREE 0.56 ng/dL (0.89-1.76); THYROID STIMULATING HORMONE 1.88 uIU/mL (0.55-4.78)
[2024-11-25 10:13] LABS: GLUCOSE 595 mg/dL (70-105)
[2024-11-25] MEDS: VANCOMYCIN 1GM/200ML PMX (BAXTER) IV SCH (10:27)
[2024-11-25] MEDS ORDERED: POTASSIUM CHLORIDE 40 MEQ in DEXT 5% WATER 230 ML IV ONE (10:30)
[2024-11-25] MEDS ORDERED: POTASSIUM CHLORIDE 20MEQ/PACKET PO NR ×2 (10:30)
[2024-11-25 13:01] LABS: CARBON DIOXIDE 13 mEq/L (21-32); CHLORIDE 123 mEq/L (98-107); SODIUM 150 mEq/L (136-145)
[2024-11-25 13:07] LABS: POTASSIUM 5.7 mEq/L (3.5-5.1)
[2024-11-25] MEDS: INSULIN REGULAR (HUMULIN R) 1000UNITS/10ML VIAL IV NR (13:37)
[2024-11-25] MEDS: INSULIN REGULAR 100U/100ML PMX 100 ML IV SCH (13:49)
[2024-11-25] MEDS: LACTATED RINGERS 1,000 ML IV SCH (13:49)
[2024-11-25 13:54] LABS: CHLORIDE URINE RANDOM 55 mEq/L; POTASSIUM URINE RANDOM 7.5 mEq/L
[2024-11-25 14:01] LABS: SODIUM URINE RANDOM < 10 mEq/L
[2024-11-25 14:02] LABS: CREATININE URINE RANDOM 54.3 mg/dL
[2024-11-25] MEDS: DEXT 5%/LACTATED RINGERS 1,000 ML IV SCH (16:29)
[2024-11-25 16:39] LABS: CARBON DIOXIDE 15 mEq/L (21-32); CHLORIDE 127 mEq/L (98-107); POTASSIUM 5.1 mEq/L (3.5-5.1); SODIUM 155 mEq/L (136-145)
[2024-11-25 16:40] LABS: CALCIUM 9.1 mg/dL (8.7-10.4)
[2024-11-25 16:45] LABS: CREATININE 2.2 mg/dL (0.6-1.3); UREA NITROGEN BLOOD 40 mg/dL (9-23)
[2024-11-25 17:10] LABS: GLUCOSE 282 mg/dL (70-105)
[2024-11-25 17:11] LABS: PHOSPHORUS 0.8 mg/dL (2.5-4.9)
[2024-11-25] MEDS: SODIUM CHLORIDE 0.45% 1,000 ML IV ONE (18:42)
[2024-11-25] MEDS: POTASSIUM PHOSPHATE IV NR (20:17)
[2024-11-25] MEDS: SODIUM CHLORIDE 0.45% IV NR (20:17)
[2024-11-25] MEDS: PANTOPRAZOLE SODIUM 40 MG/VIAL IV SCH (20:41)
[2024-11-25] MEDS: POTASSIUM-SODIUM PHOSPHATE POWDER PACKET NG NR (21:46)
[2024-11-25 22:36] LABS: CALCIUM 8.7 mg/dL (8.7-10.4); POTASSIUM 4.4 mEq/L (3.5-5.1)
[2024-11-25 22:41] LABS: CREATININE 2.1 mg/dL (0.6-1.3)
[2024-11-25 22:44] LABS: PHOSPHORUS 1.6 mg/dL (2.5-4.9)
[2024-11-25] MEDS: DEXTROSE 5% WATER 1,000 ML IV SCH (23:06)
[2024-11-26] VITALS (96 sets, daily range): BP systolic 91–153; BP diastolic 59–102; PULSE 59–100; RESP 14–26; TEMP 36.2–37.2; O2SAT 98–100
[2024-11-26 01:35] LABS: POTASSIUM 4.5 mEq/L (3.5-5.1)
[2024-11-26 01:37] LABS: CALCIUM 8.9 mg/dL (8.7-10.4)
[2024-11-26] MEDS: KCL 20MEQ/100ML PREMIX 100 ML IV PRN (01:49)
[2024-11-26] MEDS: SODIUM CHLORIDE 0.45% 1,000 ML IV SCH (03:48)
[2024-11-26 05:22] LABS: BASOPHILS % 0.2 % (0.0-2.0); DIFFERENTIAL COMMENT 0; HEMOGLOBIN. 9.5 g/dL (14.0-18.0); LYMPHOCYTES % 10.1 % (20.0-50.0); MEAN CORPUSCULAR HEMOGLOBIN 25.2 pg (28.0-32.0); MEAN CORPUSCULAR HGB CONC 32.7 g/dL (31.0-37.0); MEAN CORPUSCULAR VOLUME 77.1 fL (80.0-94.0); MEAN PLATELET VOLUME 8.3 fl (7.4-10.4); MONOCYTES % 12.8 % (2.0-8.0); NEUTROPHILS % 76.9 % (40.0-76.0); PLATELET 216 x1000/uL (130-400); RED BLOOD CELL COUNT 3.76 mill/uL (4.7-6.1); RED CELL DISTRIBUTION WIDTH 17.7 % (11.6-14.6); WHITE BLOOD COUNT 13.5 x1000/uL (4.5-11.0)
[2024-11-26 05:41] LABS: POTASSIUM 4.7 mEq/L (3.5-5.1)
[2024-11-26 05:43] LABS: CALCIUM 8.6 mg/dL (8.7-10.4)
[2024-11-26 05:50] LABS: PHOSPHORUS 3.5 mg/dL (2.5-4.9)
[2024-11-26 07:42] LABS: AMYLASE 32 IU/L (30-118)
[2024-11-26 09:28] LABS: BG BASE EXCESS -9.9 mmol/L (-2.0-3.0); BG CARBOXYHEMOGLOBIN 0.3 % (0.5-1.5); BG DEOXYHEMOGLOBIN 0.9 % (0.0-5.0); BG FRACTION INSPIRED OXYGEN 40; BG OXYGEN SATURATION 99.1 % (94.0-98.0); BG OXYHEMOGLOBIN 98.8 % (94.0-98.0); BG PCO2 21.5 mmHg (35.0-48.0); BG PH 7.399 (7.350-7.450); BG PO2 198.8 mmHg (83.0-108.0); BG SAMPLE SITE RIGHT RADIAL; BG TOTAL HEMOGLOBIN 11.6 g/dL (13.5-17.5); BG VENT MODE VENT - AC
[2024-11-26 10:34] LABS: CHLORIDE 119 mEq/L (98-107); SODIUM 147 mEq/L (136-145)
[2024-11-26 10:35] LABS: CALCIUM 8.8 mg/dL (8.7-10.4); CARBON DIOXIDE 15 mEq/L (21-32)
[2024-11-26 10:40] LABS: CREATININE 1.8 mg/dL (0.6-1.3); GLUCOSE 242 mg/dL (70-105)
[2024-11-26 10:41] LABS: UREA NITROGEN BLOOD 35 mg/dL (9-23)
[2024-11-26 10:43] LABS: PHOSPHORUS 3.2 mg/dL (2.5-4.9)
[2024-11-26] MEDS ORDERED: VANCOMYCIN 1.25GM PMX (XELLIA) 250 ML IV SCH (11:00)
[2024-11-26] MEDS: SODIUM CHLORIDE 0.45% IV SCH (11:13)
[2024-11-26] MEDS: PANTOPRAZOLE 40MG DR TABLET PO SCH (11:13)
[2024-11-26] MEDS: POTASSIUM ACETATE IV SCH (11:13)
[2024-11-26] MEDS: PANTOPRAZOLE SODIUM 40 MG/VIAL IV SCH (12:44)
[2024-11-26 12:52] LABS: CARBON DIOXIDE 17 mEq/L (21-32); CHLORIDE 119 mEq/L (98-107); POTASSIUM 3.8 mEq/L (3.5-5.1); SODIUM 147 mEq/L (136-145)
[2024-11-26 12:53] LABS: CALCIUM 8.4 mg/dL (8.7-10.4)
[2024-11-26 12:58] LABS: CREATININE 1.7 mg/dL (0.6-1.3); GLUCOSE 207 mg/dL (70-105); UREA NITROGEN BLOOD 38 mg/dL (9-23)
[2024-11-26] MEDS: POTASSIUM CHLORIDE 20MEQ/PACKET PO NR (14:16)
[2024-11-26] MEDS: ONDANSETRON HCL 4MG/2ML INJ IV PRN (14:56)
[2024-11-26] MEDS: MAGNESIUM 2 G PREMIX 50 ML IV NR (15:59)
[2024-11-26] MEDS ORDERED: DEXT 5%/0.45% NACL KCL 40MEQ/L 1,000 ML IV SCH (16:00)
[2024-11-26 16:08] LABS: CARBON DIOXIDE 15 mEq/L (21-32); CHLORIDE 118 mEq/L (98-107); SODIUM 143 mEq/L (136-145)
[2024-11-26 16:09] LABS: CALCIUM 8.7 mg/dL (8.7-10.4)
[2024-11-26 16:13] LABS: CREATININE 1.7 mg/dL (0.6-1.3)
[2024-11-26 16:14] LABS: GLUCOSE 170 mg/dL (70-105); UREA NITROGEN BLOOD 32 mg/dL (9-23)
[2024-11-26 16:16] LABS: PHOSPHORUS 3.2 mg/dL (2.5-4.9)
[2024-11-26 16:24] LABS: POTASSIUM 5.8 mEq/L (3.5-5.1)
[2024-11-26 17:01] LABS: BG BASE EXCESS -6.6 mmol/L (-2.0-3.0); BG CARBOXYHEMOGLOBIN 0.3 % (0.5-1.5); BG DEOXYHEMOGLOBIN 0.9 % (0.0-5.0); BG FRACTION INSPIRED OXYGEN 40; BG HCO3 ACT 15.4 mmol/L (21.0-28.0); BG METHEMOGLOBIN 0.2 % (0.5-1.5); BG OXYGEN SATURATION 99.1 % (94.0-98.0); BG OXYHEMOGLOBIN 98.6 % (94.0-98.0); BG PCO2 21.4 mmHg (35.0-48.0); BG PH 7.474 (7.350-7.450); BG SAMPLE SITE RIGHT RADIAL; BG TOTAL HEMOGLOBIN 10.4 g/dL (13.5-17.5); BG VENT MODE VENT - CPAP
[2024-11-26] MEDS: VANCOMYCIN 1G PREMIX 200 ML IV SCH (17:22)
[2024-11-26] MEDS: DEXT 5%/0.45% NACL 1000ML 1,000 ML IV SCH (17:22)
[2024-11-26 21:05] LABS: CHLORIDE 114 mEq/L (98-107); POTASSIUM 3.6 mEq/L (3.5-5.1); SODIUM 145 mEq/L (136-145)
[2024-11-26 21:06] LABS: CALCIUM 8.7 mg/dL (8.7-10.4); CARBON DIOXIDE 19 mEq/L (21-32)
[2024-11-26 21:11] LABS: CREATININE 1.7 mg/dL (0.6-1.3); GLUCOSE 251 mg/dL (70-105); UREA NITROGEN BLOOD 34 mg/dL (9-23)
[2024-11-26 21:13] LABS: PHOSPHORUS 2.3 mg/dL (2.5-4.9)
[2024-11-27] VITALS (70 sets, daily range): BP systolic 98–151; BP diastolic 60–100; PULSE 76–104; RESP 14–24; TEMP 36.6–37.3; O2SAT 98–100
[2024-11-27] MEDS ORDERED: POTASSIUM CHLORIDE 40 MEQ in SODIUM CHLORIDE 0.9% 230 ML IV PRN (03:15)
[2024-11-27] MEDS ORDERED: MAGNESIUM 2 G PREMIX 50 ML IV PRN ×2 (03:15→04:00)
[2024-11-27] MEDS ORDERED: SODIUM PHOSPHATE 15 MMOL in DEXT 5% WATER 245 ML IV PRN (03:15)
[2024-11-27] MEDS: SODIUM CHLORIDE 0.9% 1,000 ML IV PRN (03:26)
[2024-11-27 03:27] LABS: CHLORIDE 115 mEq/L (98-107); POTASSIUM 3.1 mEq/L (3.5-5.1); SODIUM 145 mEq/L (136-145)
[2024-11-27 03:28] LABS: CARBON DIOXIDE 20 mEq/L (21-32)
[2024-11-27 03:29] LABS: CALCIUM 8.2 mg/dL (8.7-10.4)
[2024-11-27 03:33] LABS: CREATININE 1.6 mg/dL (0.6-1.3); GLUCOSE 318 mg/dL (70-105)
[2024-11-27 03:34] LABS: UREA NITROGEN BLOOD 29 mg/dL (9-23)
[2024-11-27 03:36] LABS: PHOSPHORUS 2.8 mg/dL (2.5-4.9)
[2024-11-27] MEDS ORDERED: KCL 20MEQ/100ML PREMIX 100 ML IV PRN (04:00)
[2024-11-27] MEDS ORDERED: BLOOD SUGAR DIAGNOSTIC STRIP TEST SCH ×2 (04:00→11:30)
[2024-11-27] MEDS ORDERED: BLOOD SUGAR DIAGNOSTIC STRIP TEST PRN (04:00)
[2024-11-27] MEDS ORDERED: DEXTROSE 50% WATER 50ML SYRINGE IV PRN ×5 (04:00→18:30)
[2024-11-27] MEDS ORDERED: SODIUM PHOSPHATE 15 MMOL in SODIUM CHLORIDE 0.9% 245 ML IV PRN (04:00)
[2024-11-27] MEDS ORDERED: SODIUM CHLORIDE 0.9% 1,000 ML IV SCH (04:00)
[2024-11-27] MEDS ORDERED: DEXT 5%/0.9% NACL 1,000 ML IV SCH (04:00)
[2024-11-27 06:22] LABS: BASOPHILS % 0.2 % (0.0-2.0); DIFFERENTIAL COMMENT 0; EOSINOPHILS % 0.2 % (0.0-5.0); HEMATOCRIT. 26.6 % (42.0-52.0); LYMPHOCYTES % 10.8 % (20.0-50.0); MEAN CORPUSCULAR HEMOGLOBIN 25.7 pg (28.0-32.0); MEAN CORPUSCULAR HGB CONC 33.8 g/dL (31.0-37.0); MEAN PLATELET VOLUME 8.3 fl (7.4-10.4); NEUTROPHILS % 84.8 % (40.0-76.0); PLATELET 166 x1000/uL (130-400); RED CELL DISTRIBUTION WIDTH 16.6 % (11.6-14.6); WHITE BLOOD COUNT 14.5 x1000/uL (4.5-11.0)
[2024-11-27 06:36] LABS: CHLORIDE 115 mEq/L (98-107); SODIUM 147 mEq/L (136-145)
[2024-11-27 06:37] LABS: CALCIUM 8.5 mg/dL (8.7-10.4); CARBON DIOXIDE 20 mEq/L (21-32)
[2024-11-27 06:42] LABS: CREATININE 1.6 mg/dL (0.6-1.3); GLUCOSE 242 mg/dL (70-105); IRON 28 ug/dL (65-175); UREA NITROGEN BLOOD 29 mg/dL (9-23)
[2024-11-27 06:43] LABS: TOTAL IRON BINDING CAPACITY 453 ug/dl (250-425)
[2024-11-27 06:44] LABS: ALANINE AMINOTRANSFERASE 9 IU/L (10-49); ALBUMIN 2.8 g/dL (3.2-4.8); ASPARTATE AMINOTRANSFERASE 21 IU/L (<34); BILIRUBIN DIRECT 0.1 mg/dL (<=3.0); BILIRUBIN TOTAL 0.5 mg/dL (0.1-1.0); PROTEIN TOTAL 5.2 g/dL (6.0-8.3)
[2024-11-27 06:50] LABS: VITAMIN B12 SERUM 853 pg/mL (211-911)
[2024-11-27 06:52] LABS: FOLIC ACID (FOLATE) SERUM 1.88 ng/mL (>5.38)
[2024-11-27 06:53] LABS: FERRITIN > 1650 ng/mL (22-322)
[2024-11-27] MEDS: POTASSIUM CHLORIDE 40 MEQ in SODIUM CHLORIDE 0.9% 230 ML IV PRN (06:55)
[2024-11-27 08:00] LABS: BG BASE EXCESS -3.7 mmol/L (-2.0-3.0); BG CARBOXYHEMOGLOBIN 0.3 % (0.5-1.5); BG DEOXYHEMOGLOBIN 1.2 % (0.0-5.0); BG FRACTION INSPIRED OXYGEN 28; BG HCO3 ACT 18.6 mmol/L (21.0-28.0); BG METHEMOGLOBIN 0.1 % (0.5-1.5); BG OXYGEN SATURATION 98.8 % (94.0-98.0); BG OXYHEMOGLOBIN 98.4 % (94.0-98.0); BG PCO2 24.4 mmHg (35.0-48.0); BG PH 7.501 (7.350-7.450); BG PO2 137.6 mmHg (83.0-108.0); BG SAMPLE SITE RIGHT BRACHIAL; BG TOTAL HEMOGLOBIN 8.1 g/dL (13.5-17.5); BG VENT MODE NASAL CANNULA
[2024-11-27 08:44] LABS: CHLORIDE 116 mEq/L (98-107); POTASSIUM 3.7 mEq/L (3.5-5.1); SODIUM 147 mEq/L (136-145)
[2024-11-27 08:45] LABS: CARBON DIOXIDE 19 mEq/L (21-32)
[2024-11-27] MEDS: INSULIN GLARGINE 100 UNITS/ML SUBCUT NR ×2 (08:49→17:34)
[2024-11-27] MEDS: BLOOD SUGAR DIAGNOSTIC STRIP TEST SCH ×2 (11:00→12:23)
[2024-11-27] MEDS: SODIUM CHLORIDE 0.45% 1,000 ML IV ONE (11:00)
[2024-11-27] MEDS: VANCOMYCIN 1.25GM PMX (XELLIA) 250 ML IV SCH (11:03)
[2024-11-27] MEDS: INSULIN LISPRO 100 UNITS/ML SUBCUT SCH ×2 (11:03→21:00)
[2024-11-27 12:13] LABS: CHLORIDE 111 mEq/L (98-107); POTASSIUM 4.1 mEq/L (3.5-5.1); SODIUM 142 mEq/L (136-145)
[2024-11-27 12:14] LABS: CARBON DIOXIDE 17 mEq/L (21-32)
[2024-11-27 12:15] LABS: CALCIUM 8.5 mg/dL (8.7-10.4)
[2024-11-27 12:19] LABS: CREATININE 1.6 mg/dL (0.6-1.3); GLUCOSE 351 mg/dL (70-105)
[2024-11-27 12:20] LABS: UREA NITROGEN BLOOD 26 mg/dL (9-23)
[2024-11-27 12:22] LABS: PHOSPHORUS 3.3 mg/dL (2.5-4.9)
[2024-11-27] MEDS: INSULIN REGULAR 100U/100ML PMX 100 ML IV SCH (13:07)
[2024-11-27] MEDS ORDERED: INSULIN REGULAR 100U/100ML PMX 100 ML IV SCH (14:00)
[2024-11-27] MEDS: DEXT 5%/0.45% NACL 1000ML 1,000 ML IV PRN (14:33)
[2024-11-27 16:40] LABS: POTASSIUM 3.1 mEq/L (3.5-5.1)
[2024-11-27 16:42] LABS: CALCIUM 8.6 mg/dL (8.7-10.4)
[2024-11-27 16:47] LABS: CREATININE 1.6 mg/dL (0.6-1.3)
[2024-11-27] MEDS: POTASSIUM CHLORIDE 20MEQ/PACKET PO NR (17:33)
[2024-11-27] MEDS: SODIUM CHLORIDE 0.45% 1,000 ML IV SCH (18:34)
[2024-11-27 21:08] LABS: POTASSIUM 3.9 mEq/L (3.5-5.1)
[2024-11-27 21:09] LABS: CALCIUM 9.1 mg/dL (8.7-10.4)
[2024-11-27 21:14] LABS: CREATININE 1.6 mg/dL (0.6-1.3)
[2024-11-27] MEDS: KCL 20MEQ/100ML PREMIX 100 ML IV PRN (21:44)
[2024-11-28] VITALS (67 sets, daily range): BP systolic 94–151; BP diastolic 67–105; PULSE 72–123; RESP 15–31; TEMP 36.4–36.8; O2SAT 98–100
[2024-11-28 01:02] LABS: CHLORIDE 107 mEq/L (98-107); POTASSIUM 4.2 mEq/L (3.5-5.1); SODIUM 141 mEq/L (136-145)
[2024-11-28 01:03] LABS: CARBON DIOXIDE 18 mEq/L (21-32)
[2024-11-28 01:08] LABS: UREA NITROGEN BLOOD 21 mg/dL (9-23)
[2024-11-28 01:10] LABS: PHOSPHORUS 3.6 mg/dL (2.5-4.9)
[2024-11-28 02:42] LABS: CREATININE 1.6 mg/dL (0.6-1.3)
[2024-11-28 02:44] LABS: GLUCOSE 401 mg/dL (70-105)
[2024-11-28 05:51] LABS: BASOPHILS % 0.1 % (0.0-2.0); DIFFERENTIAL COMMENT 0; EOSINOPHILS % 0.1 % (0.0-5.0); HEMATOCRIT. 29.4 % (42.0-52.0); HEMOGLOBIN. 9.9 g/dL (14.0-18.0); LYMPHOCYTES % 9.6 % (20.0-50.0); MEAN CORPUSCULAR HEMOGLOBIN 25.5 pg (28.0-32.0); MEAN CORPUSCULAR HGB CONC 33.7 g/dL (31.0-37.0); MEAN CORPUSCULAR VOLUME 75.8 fL (80.0-94.0); MEAN PLATELET VOLUME 8.5 fl (7.4-10.4); NEUTROPHILS % 87.2 % (40.0-76.0); PLATELET 162 x1000/uL (130-400); RED BLOOD CELL COUNT 3.88 mill/uL (4.7-6.1); RED CELL DISTRIBUTION WIDTH 16.5 % (11.6-14.6); WHITE BLOOD COUNT 13.8 x1000/uL (4.5-11.0)
[2024-11-28 06:09] LABS: CARBON DIOXIDE 22 mEq/L (21-32); CHLORIDE 112 mEq/L (98-107); POTASSIUM 3.3 mEq/L (3.5-5.1)
[2024-11-28 06:10] LABS: SODIUM 145 mEq/L (136-145)
[2024-11-28 06:15] LABS: CREATININE 1.4 mg/dL (0.6-1.3)
[2024-11-28 06:16] LABS: UREA NITROGEN BLOOD 20 mg/dL (9-23)
[2024-11-28 06:18] LABS: PHOSPHORUS 3.2 mg/dL (2.5-4.9)
[2024-11-28 06:43] LABS: GLUCOSE 206 mg/dL (70-105)
[2024-11-28] MEDS ORDERED: POTASSIUM CHLORIDE 40 MEQ in DEXT 5% WATER 230 ML IV PRN (07:15)
[2024-11-28] MEDS ORDERED: DEXTROSE 50% WATER 50ML SYRINGE IV PRN ×3 (07:15→17:30)
[2024-11-28] MEDS: BLOOD SUGAR DIAGNOSTIC STRIP TEST SCH ×4 (07:51→22:37)
[2024-11-28] MEDS: POTASSIUM CHLORIDE 20MEQ/PACKET PO NR (07:51)
[2024-11-28] MEDS: INSULIN LISPRO 100 UNITS/ML SUBCUT SCH ×4 (08:13→22:35)
[2024-11-28] MEDS: FAMOTIDINE 20MG/2ML VIAL IV SCH (08:14)
[2024-11-28 08:37] LABS: CHLORIDE 110 mEq/L (98-107); POTASSIUM 3.7 mEq/L (3.5-5.1); SODIUM 144 mEq/L (136-145)
[2024-11-28 08:38] LABS: CALCIUM 9.1 mg/dL (8.7-10.4); CARBON DIOXIDE 21 mEq/L (21-32)
[2024-11-28 08:43] LABS: CREATININE 1.4 mg/dL (0.6-1.3); GLUCOSE 199 mg/dL (70-105); UREA NITROGEN BLOOD 18 mg/dL (9-23)
[2024-11-28] MEDS: INSULIN GLARGINE 100 UNITS/ML SUBCUT SCH ×2 (10:05→22:36)
[2024-11-28] MEDS: METOPROLOL SUCCINATE 50MG ER TABLET PO SCH (10:06)
[2024-11-28] MEDS: KCL 20MEQ/100ML PREMIX 100 ML IV NR (10:50)
[2024-11-28 11:44] LABS: CARBON DIOXIDE 21 mEq/L (21-32); CHLORIDE 112 mEq/L (98-107); POTASSIUM 3.8 mEq/L (3.5-5.1); SODIUM 144 mEq/L (136-145)
[2024-11-28 11:45] LABS: CALCIUM 8.8 mg/dL (8.7-10.4)
[2024-11-28 11:50] LABS: CREATININE 1.3 mg/dL (0.6-1.3); GLUCOSE 206 mg/dL (70-105); UREA NITROGEN BLOOD 19 mg/dL (9-23)
[2024-11-28] MEDS: SODIUM CHLORIDE 0.45% 1,000 ML IV SCH (12:22)
[2024-11-28 17:06] LABS: CALCIUM 9.2 mg/dL (8.7-10.4); CHLORIDE 108 mEq/L (98-107); POTASSIUM 3.8 mEq/L (3.5-5.1); SODIUM 140 mEq/L (136-145)
[2024-11-28 17:07] LABS: CARBON DIOXIDE 22 mEq/L (21-32)
[2024-11-28 17:12] LABS: CREATININE 1.3 mg/dL (0.6-1.3); GLUCOSE 309 mg/dL (70-105); UREA NITROGEN BLOOD 17 mg/dL (9-23)
[2024-11-28] MEDS ORDERED: INSULIN GLARGINE 100 UNITS/ML SUBCUT SCH (22:00)
[2024-11-28 23:11] LABS: CHLORIDE 105 mEq/L (98-107); POTASSIUM 3.4 mEq/L (3.5-5.1); SODIUM 138 mEq/L (136-145)
[2024-11-28 23:12] LABS: CALCIUM 9.1 mg/dL (8.7-10.4); CARBON DIOXIDE 22 mEq/L (21-32)
[2024-11-28 23:17] LABS: CREATININE 1.3 mg/dL (0.6-1.3); GLUCOSE 339 mg/dL (70-105); UREA NITROGEN BLOOD 14 mg/dL (9-23)
[2024-11-29] VITALS (60 sets, daily range): BP systolic 119–150; BP diastolic 71–119; PULSE 70–109; RESP 11–29; TEMP 36.6–36.8; O2SAT 97–100
[2024-11-29 05:31] LABS: BASOPHILS % 0.1 % (0.0-2.0); DIFFERENTIAL COMMENT 0; EOSINOPHILS % 0.5 % (0.0-5.0); HEMATOCRIT. 31.2 % (42.0-52.0); HEMOGLOBIN. 10.4 g/dL (14.0-18.0); LYMPHOCYTES % 10.3 % (20.0-50.0); MEAN CORPUSCULAR HEMOGLOBIN 25.4 pg (28.0-32.0); MEAN CORPUSCULAR HGB CONC 33.4 g/dL (31.0-37.0); MEAN CORPUSCULAR VOLUME 76.2 fL (80.0-94.0); MEAN PLATELET VOLUME 8.6 fl (7.4-10.4); MONOCYTES % 8.2 % (2.0-8.0); NEUTROPHILS % 80.9 % (40.0-76.0); PLATELET 164 x1000/uL (130-400); RED CELL DISTRIBUTION WIDTH 16.1 % (11.6-14.6); WHITE BLOOD COUNT 13.4 x1000/uL (4.5-11.0)
[2024-11-29 05:38] LABS: CALCIUM 9.1 mg/dL (8.7-10.4); CARBON DIOXIDE 26 mEq/L (21-32); CHLORIDE 106 mEq/L (98-107); POTASSIUM 3.6 mEq/L (3.5-5.1); SODIUM 142 mEq/L (136-145)
[2024-11-29 05:43] LABS: CREATININE 1.3 mg/dL (0.6-1.3)
[2024-11-29 05:44] LABS: GLUCOSE 229 mg/dL (70-105); UREA NITROGEN BLOOD 14 mg/dL (9-23)
[2024-11-29 05:46] LABS: PHOSPHORUS 3.9 mg/dL (2.5-4.9)
[2024-11-29] MEDS ORDERED: INSULIN LISPRO 100 UNITS/ML SUBCUT SCH ×2 (06:30→07:30)
[2024-11-29] MEDS: INSULIN LISPRO 100 UNITS/ML SUBCUT SCH (06:51)
[2024-11-29] MEDS: POTASSIUM CHLORIDE 20MEQ/PACKET PO NR (06:54)
[2024-11-29] MEDS ORDERED: MAGNESIUM 2 G PREMIX 50 ML IV ONE (07:30)
[2024-11-29] MEDS: MAGNESIUM 2 G PREMIX 50 ML IV NR ×2 (07:58→15:16)
[2024-11-29] MEDS: POTASSIUM CHLORIDE 20MEQ in DEXT 5% WATER 100ML IV SCH (09:42)
[2024-11-29] MEDS ORDERED: KCL 20MEQ/100ML PREMIX 100 ML IV SCH (10:00)
[2024-11-29 13:07] LABS: ANTI-PANCREATIC ISLET CELL AB Negative (Neg:<1:1)
[2024-11-29 13:08] LABS: CHLORIDE 105 mEq/L (98-107); SODIUM 139 mEq/L (136-145)
[2024-11-29 13:09] LABS: CALCIUM 8.8 mg/dL (8.7-10.4); CARBON DIOXIDE 26 mEq/L (21-32)
[2024-11-29 13:14] LABS: CREATININE 1.2 mg/dL (0.6-1.3); GLUCOSE 247 mg/dL (70-105); UREA NITROGEN BLOOD 14 mg/dL (9-23)
[2024-11-29] MEDS: FOLIC ACID 1MG TABLET PO SCH (14:32)
[2024-11-29] MEDS: FERROUS SULFATE 325MG TABLET PO SCH (14:32)
[2024-11-29] MEDS: ASCORBIC ACID 500 MG TABLET PO SCH (14:32)
[2024-11-29] MEDS: MAGNESIUM/ALUMINUM HYDROXIDE/SIMETHICONE 30ML UDC PO PRN (15:16)
[2024-11-29] MEDS: MELATONIN 3MG TABLET PO PRN (22:04)
[2024-11-29] MEDS: INSULIN GLARGINE 100 UNITS/ML SUBCUT SCH (22:05)
[2024-11-30] VITALS (21 sets, daily range): BP systolic 108–167; BP diastolic 58–107; PULSE 70–100; RESP 12–22; TEMP 36.4–36.6; O2SAT 97–100
[2024-11-30 06:01] LABS: BASOPHILS % 0.2 % (0.0-2.0); DIFFERENTIAL COMMENT 0; EOSINOPHILS % 1.3 % (0.0-5.0); HEMATOCRIT. 30.6 % (42.0-52.0); HEMOGLOBIN. 10.2 g/dL (14.0-18.0); LYMPHOCYTES % 11.9 % (20.0-50.0); MEAN CORPUSCULAR HEMOGLOBIN 25.7 pg (28.0-32.0); MEAN CORPUSCULAR HGB CONC 33.5 g/dL (31.0-37.0); MEAN CORPUSCULAR VOLUME 76.8 fL (80.0-94.0); MEAN PLATELET VOLUME 9.1 fl (7.4-10.4); MONOCYTES % 12.7 % (2.0-8.0); NEUTROPHILS % 73.9 % (40.0-76.0); PLATELET 173 x1000/uL (130-400); RED BLOOD CELL COUNT 3.98 mill/uL (4.7-6.1); RED CELL DISTRIBUTION WIDTH 15.5 % (11.6-14.6); WHITE BLOOD COUNT 11.2 x1000/uL (4.5-11.0)
[2024-11-30 06:19] LABS: CALCIUM 8.9 mg/dL (8.7-10.4); CARBON DIOXIDE 27 mEq/L (21-32); CHLORIDE 103 mEq/L (98-107); POTASSIUM 3.6 mEq/L (3.5-5.1); SODIUM 139 mEq/L (136-145)
[2024-11-30 06:25] LABS: CREATININE 1.1 mg/dL (0.6-1.3); GLUCOSE 194 mg/dL (70-105); IRON 29 ug/dL (65-175)
[2024-11-30 06:26] LABS: T4 FREE 1.31 ng/dL (0.89-1.76); UREA NITROGEN BLOOD 11 mg/dL (9-23)
[2024-11-30 06:27] LABS: THYROID STIMULATING HORMONE 2.09 uIU/mL (0.55-4.78)
[2024-11-30 06:28] LABS: TOTAL IRON BINDING CAPACITY 593 ug/dl (250-425)
[2024-11-30] MEDS: INSULIN LISPRO 100 UNITS/ML SUBCUT SCH (08:33)
[2024-11-30 13:11] LABS: C-PEPTIDE < 0.1 ng/mL (1.1-4.4)
[2024-11-30] MEDS ORDERED: INSU100V43 SQ (16:17)
[2024-11-30] MEDS ORDERED: INSU100I28 SQ ×2 (16:17→16:50)
[2024-11-30] MEDS ORDERED: INSU100I13 SQ (16:27)
[2024-11-30] MEDS ORDERED: INSU100I53 SQ (16:50)
[2024-12-01] MEDS ORDERED: METOPROLOL SUCCINATE 25MG ER TABLET PO SCH (09:00)
== END 2024-11-30 17:50 | disposition home or self-care (01) | DRG 720 ==
LOC: ER 06:19 → MICUSO 08:02 → EDBEDREQ 08:18 → EDBEDREQTM 08:18 → 6EST 11-30 10:24
PROVIDERS: ADMIT Internal Medicine; ATTEND Internal Medicine
PROC: 5A1945Z Respiratory Ventilation, 24-96 Consecutive Hours (ICD-10-PCS; 2024-11-24)
PROC: 0BH17EZ Insertion of Endotracheal Airway into Trachea, Via Natural or Artificial Opening (ICD-10-PCS; 2024-11-24)
PROC: 06HY33Z Insertion of Infusion Device into Lower Vein, Percutaneous Approach (ICD-10-PCS; principal; 2024-11-25)
DX: A41.9 Sepsis, unspecified organism (principal); J96.00 Acute respiratory failure, unspecified whether with hypoxia or hypercapnia; N17.0 Acute kidney failure with tubular necrosis; R65.21 Severe sepsis with septic shock; E10.10 Type 1 diabetes mellitus with ketoacidosis without coma; G92.8 Other toxic encephalopathy; K85.90 Acute pancreatitis without necrosis or infection, unspecified; I47.10 Supraventricular tachycardia, unspecified; I48.92 Unspecified atrial flutter; E10.649 Type 1 diabetes mellitus with hypoglycemia without coma; I48.0 Paroxysmal atrial fibrillation; R29.5 Transient paralysis; I50.20 Unspecified systolic (congestive) heart failure; E83.39 Other disorders of phosphorus metabolism; E78.1 Pure hyperglyceridemia; E87.6 Hypokalemia; K86.1 Other chronic pancreatitis; D50.9 Iron deficiency anemia, unspecified; I42.9 Cardiomyopathy, unspecified; E53.8 Deficiency of other specified B group vitamins; E87.0 Hyperosmolality and hypernatremia; E87.4 Mixed disorder of acid-base balance; E83.41 Hypermagnesemia; E83.42 Hypomagnesemia; E86.0 Dehydration; G47.00 Insomnia, unspecified; E83.52 Hypercalcemia; G35 Multiple sclerosis; Z79.4 Long term (current) use of insulin; Z79.84 Long term (current) use of oral hypoglycemic drugs; Z82.49 Family history of ischemic heart disease and other diseases of the circulatory system; Z83.3 Family history of diabetes mellitus; Z91.148 Patient's other noncompliance with medication regimen for other reason; Z79.899 Other long term (current) drug therapy
CPT/HCPCS: 36415; 36600; 71045; 74018; 74176; 80048; 80051; 80061; 80076; 80202; 80305; 81003; 82010; 82024; 82150; 82270; 82375; 82436; 82533; 82550; 82570; 82607; 82728; 82746; 82787; 82805; 82962; 83036; 83519; 83540; 83550; 83605; 83695; 83735; 83880; 83930; 84100; 84132; 84133; 84145; 84146; 84206; 84300; 84439; 84443; 84478; 84484; 84681; 85025; 85044; 85651; 86038; 86337; 86341; 93005; 93306; 93308; 94002; 94003; 94070; 94640; 94664; 97162; 97166; 98960; 99291; A4606; J1650; J1815; J2405; J2470; J2543; J3370; J3475; J3480; J3490; J7030; J7040; J7042; J7050; J7060; J7070; J7120; Q9957